=== PATIENT | male | born 2000 | race Caucasian/White ===

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

== ENCOUNTER 2021-07-22 21:55 | Observation (INO) ==
[2021-07-23] MEDS ORDERED: Naloxone 0.4 MG/ML INJ IVP PRN (00:08)
[2021-07-23] MEDS ORDERED: Acetaminophen 325 MG TABLET PO PRN (00:08)
[2021-07-23] MEDS ORDERED: Ondansetron 4 MG/2 ML VIAL IVP PRN (00:08)
[2021-07-23] MEDS ORDERED: Melatonin 3 MG TABLET PO PRN (00:08)
[2021-07-23] MEDS ORDERED: *HR* Promethazine 25 MG/ML VIAL IM PRN (00:08)
[2021-07-23] MEDS ORDERED: D5% in Lactated Ringers 1,000 ML IVC SCH (00:15)
[2021-07-23 02:14] LABS: Basophils % 0.3 %; Eosinophils # 0.2 K/mcL (0.0-0.6); Eosinophils % 1.4 %; Hematocrit 37.3 % (37.5-50.1); Hemoglobin 12.8 g/dL (12.9-16.9); Immature Granulocytes % 0.4 % (0-4); Lymphocytes # 1.9 K/mcL (0.6-4.6); Mean Corpuscular HGB Conc 34.3 g/dL (31.6-35.5); Mean Corpuscular Hemoglobin 31.8 pg (28.0-33.3); Mean Corpuscular Volume 92.6 fL (83.0-100.0); Mean Platelet Volume 9.5 fL (9.4-12.4); Monocytes # 1.4 K/mcL (0.0-1.3); Monocytes % 9.5 %; Neutrophils # 10.8 K/mcL (1.6-8.9); Platelet Count 361 K/mcL (140-400); Red Blood Count 4.03 M/mcL (4.19-5.50); Red Cell Distribution Width 12.1 % (11.5-14.5); Segmented Neutrophils % 75.4 %; White Blood Count 14.4 K/mcL (4.3-11.1)
[2021-07-23 02:24] LABS: INR 1.2; Prothrombin Time 13.3 Seconds (9.4-12.1)
[2021-07-23 02:30] LABS: BUN/Creatinine Ratio 15 (6-26); Blood Urea Nitrogen 9 mg/dL (6-20); Calcium 8.1 mg/dL (8.6-10.3); Carbon Dioxide 19 mEq/L (23-29); Chloride 108 mEq/L (98-107); Glucose 143 mg/dL (70-105); Magnesium 2.1 mg/dL (1.6-2.6); Osmolality,Calculated 285 (280-300); Phosphorous 2.4 mg/dL (2.7-4.5); Potassium 3.4 mEq/L (3.5-5.1); Sodium 137 mEq/L (136-145); eGFR For African Americans > 60 (> 60); eGFR For Non-African Americans > 60 (> 60)
[2021-07-23] MEDS ORDERED: Ringers Solution, Lactated 1,000 ML ONE (04:01)
[2021-07-23] MEDS ORDERED: Ringer's Solution, Lactated 250 ML IV.SOLN IVC SCH (04:15)
[2021-07-23] MEDS: Ringers Solution, Lactated 1,000 ML IVC SCH ×3 (04:45→20:36)
[2021-07-23] MEDS: cefTRIAXone 1,000 MG in Water for inj. (sterile) 10 ML IVP SCH (08:30)
[2021-07-24] MEDS: Ringers Solution, Lactated 1,000 ML IVC SCH ×3 (04:19→17:56)
[2021-07-24] MEDS: cefTRIAXone 1,000 MG in Water for inj. (sterile) 10 ML IVP SCH (09:30)
[2021-07-24] MEDS ORDERED: Haloperidol Lactate 5 MG/ML VIAL IM PRN (16:30)
[2021-07-25] MEDS: Ringers Solution, Lactated 1,000 ML IVC SCH ×2 (01:14→08:26)
[2021-07-25 02:06] LABS: Basophils % 0.3 %; Eosinophils # 0.3 K/mcL (0.0-0.6); Eosinophils % 3.3 %; Hematocrit 37.7 % (37.5-50.1); Hemoglobin 12.5 g/dL (12.9-16.9); Immature Granulocytes % 0.2 % (0-4); Lymphocytes # 2.7 K/mcL (0.6-4.6); Lymphocytes % 28.4 %; Mean Corpuscular HGB Conc 33.2 g/dL (31.6-35.5); Mean Corpuscular Hemoglobin 29.6 pg (28.0-33.3); Mean Corpuscular Volume 89.3 fL (83.0-100.0); Mean Platelet Volume 9.3 fL (9.4-12.4); Monocytes # 1.1 K/mcL (0.0-1.3); Monocytes % 11.6 %; Neutrophils # 5.3 K/mcL (1.6-8.9); Platelet Count 384 K/mcL (140-400); Red Blood Count 4.22 M/mcL (4.19-5.50); Segmented Neutrophils % 56.2 %; White Blood Count 9.5 K/mcL (4.3-11.1)
[2021-07-25 02:31] LABS: BUN/Creatinine Ratio 12 (6-26); Blood Urea Nitrogen 7 mg/dL (6-20); Calcium 8.8 mg/dL (8.6-10.3); Carbon Dioxide 27 mEq/L (23-29); Chloride 104 mEq/L (98-107); Glucose 102 mg/dL (70-105); Osmolality,Calculated 286 (280-300); Potassium 3.4 mEq/L (3.5-5.1); Sodium 139 mEq/L (136-145); eGFR For African Americans > 60 (> 60); eGFR For Non-African Americans > 60 (> 60)
[2021-07-25] MEDS: cefTRIAXone 1,000 MG in Water for inj. (sterile) 10 ML IVP SCH (08:25)
[2021-07-25 12:05] VITALS: BP 114/71; PULSE 112; TEMP 97.8; O2SAT 99
== END 2021-07-25 14:30 | disposition home or self-care (01) ==
LOC: 2NNU → 3ANU 07-23 17:06
PROVIDERS: ADMIT Family Medicine; ATTEND Family Medicine

== ENCOUNTER 2021-07-25 14:30 | Inpatient (IN) ==
[2021-07-25] MEDS ORDERED: Ibuprofen 400 MG TABLET PO PRN (14:57)
[2021-07-25] MEDS ORDERED: *HR* LORazepam 1 MG TABLET PO PRN (14:57)
[2021-07-25] MEDS ORDERED: haloperidoL 5 MG TABLET PO PRN (14:57)
[2021-07-25] MEDS ORDERED: MOM Conc 10 ML UD.LIQ PO PRN (14:57)
[2021-07-25] MEDS ORDERED: *HR* LORazepam 2 MG/ML VIAL IM PRN (14:57)
[2021-07-25] MEDS ORDERED: Mag Hydrox/Al Hydrox/Simeth 30 ML UDC PO PRN (14:57)
[2021-07-25] MEDS ORDERED: Haloperidol Lactate 5 MG/ML VIAL IM PRN (14:57)
[2021-07-25] MEDS ORDERED: hydrOXYzine pamoate 25 MG CAPSULE PO PRN (15:27)
[2021-07-25] MEDS: Nicotine 21 MG PATCH.TD24 TD SCH (16:24)
[2021-07-25] MEDS ORDERED: hydrOXYzine pamoate 25 MG CAPSULE PO SCH (17:00)
[2021-07-25] MEDS ORDERED: Melatonin 3 MG TABLET PO SCH (21:00)
[2021-07-25] MEDS ORDERED: traZODone 50 MG TABLET PO PRN (21:28)
[2021-07-26] MEDS: hydrOXYzine pamoate 25 MG CAPSULE PO SCH ×3 (13:04→20:11)
[2021-07-26] MEDS: cloNIDine HCL 0.1 MG TABLET PO SCH ×2 (13:04→20:11)
[2021-07-26] MEDS: Nicotine 21 MG PATCH.TD24 TD SCH (13:06)
[2021-07-26] MEDS: Multivit/Ca/Min/Fe/FA 1 TAB TABLET PO SCH (13:06)
[2021-07-26] MEDS ORDERED: Melatonin 3 MG TABLET PO SCH (21:00)
[2021-07-27] MEDS: hydrOXYzine pamoate 25 MG CAPSULE PO SCH (08:42)
[2021-07-27] MEDS: Multivit/Ca/Min/Fe/FA 1 TAB TABLET PO SCH (08:42)
[2021-07-27] MEDS: cloNIDine HCL 0.1 MG TABLET PO SCH (08:42)
[2021-07-27] MEDS: Nicotine 21 MG PATCH.TD24 TD SCH (08:45)
[2021-07-27 10:03] VITALS: BP 107/70; PULSE 106; TEMP 97.6; O2SAT 98
== END 2021-07-27 12:50 | disposition home or self-care (01) | DRG 885 ==
LOC: 1ANU 14:30
PROVIDERS: ADMIT Psychiatry & Neurology Psychiatry; ATTEND Psychiatry & Neurology Psychiatry